=== PATIENT | male | born 1970 | race African-American/Black ===

== ENCOUNTER 2018-11-05 06:39 | Emergency (ER) | payer OTHER ==
[2018-11-05 07:20] VITALS: BP 129/90; PULSE 87; TEMP 98.1; BMI 23.1
[2018-11-05] MEDS ORDERED: KETOROLAC TROMETHAMINE 60 MG/2 ML VIAL IM ONE (08:18)
[2018-11-05] MEDS ORDERED: KETOROLAC TROMETHAMINE 60 MG/2 ML VIAL ONE (08:22)
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
== END 2018-11-05 11:12 | disposition home or self-care (01) ==
LOC: JER 06:39
PROC: 3E0233Z Introduction of Anti-inflammatory into Muscle, Percutaneous Approach (ICD-10-PCS; principal; 2018-11-05)
DX: M54.2 Cervicalgia (principal); G89.29 Other chronic pain
CPT/HCPCS: 99282-25